=== PATIENT | male | born 1990 | race Caucasian/White ===

== ENCOUNTER 2023-04-24 17:53 | Emergency (ER) | payer OTHER, SELFPAY ==
[2023-04-24 17:58] VITALS: BP 138/97
[2023-04-24 18:23] LABS: % Basophils 0.6 % (0-2); % Eosinophils 0.1 % (0-6); % Immature Granulocytes 0.4 % (0-0.5); % Monocytes 7.1 % (1.7-9.3); % Neutrophils 76.8 % (42.2-75.2); Absolute Basophils 0.1 10^3/uL (0-0.2); Absolute Lymphocytes 1.2 10^3/uL (1.2-3.4); Absolute Monocytes 0.6 10^3/uL (0.1-0.6); Hematocrit 45.2 % (39.0-52.0); Hemoglobin 16.8 g/dL (13.0-18.0); Mean Corp Hgb Conc. 37.2 g/dL (33.0-37.0); Mean Corpuscular Hgb 31.5 pg (27.0-31.0); Mean Corpuscular Volume 84.6 fL (80.0-94.0); Mean Platelet Volume 10.3 fL (7.4-10.4); Nucleated Red Blood Cells % 0 % (-); Platelet Count 263 10^3/uL (130-400); Red Blood Cell Count 5.34 10^6/uL (4.70-6.10); Red Cell Dist. Width 11.6 % (11.5-14.5); White Blood Cell Count 7.8 10^3/uL (4.8-10.8)
[2023-04-24 18:33] LABS: Blood Urea Nitrogen 7 mg/dl (9-20); Calcium 9.9 mg/dl (8.4-10.2); Carbon Dioxide 21 mmol/L (22-30); Chloride 108 mmol/L (98-107); Glucose 130 mg/dl (70-99); Sodium 138 mmol/L (135-145); eGFR > 60.00
--- NOTE | 2023-04-24 21:00 | ED.GENMED ---
History of Present Illness
General
Chief Complaint: Anxiety
Source: patient and significant other
Exam Limitations: none
Time Seen by Provider: 04/24/23 20:41
Nursing documentation reviewed up to this point in time: agreed with
Travel History
Have you had any contact with someone who has COVID-19?: No
Do you have any symptoms of coronavirus? Fever > 100 degrees, chills, cough, shortness of breath, sore throat, loss of taste or smell, muscle aches, or headache?: No
History of Present Illness
History of Present Illness:
33-year-old male presents with a panic attack had what a few days ago for the first time, stopped spontaneously returned today went to an urgent care was tachycardic referred here has had depression and some anxiety previously never seen any
healthcare providers for this, drinks socially not excess uses THC occasionally, no street drugs no amphetamines he has a job, tells me particularly stressful, no suicidal thoughts,
Past History
Past History
ED Past Medical History: None
ED Past Surgical History: Other (Laceration of the right wrist repaired surgically)
Review of Systems
Review of Systems
All Other Systems: Not applicable
Constitutional: Denies fever or fatigue
EENT: Reports no symptoms
Respiratory: Reports no symptoms; Denies cough or trouble breathing
Cardiac: Reports palpitations; Denies chest pain
ABD/GI: Reports no symptoms
: Reports no symptoms
Neurological: Reports numbness (Numbness of his fingers); Denies weakness
Endocrine: Reports no symptoms
Psychiatric: Reports depression and anxiety; Denies suicidal or hallucinations
Phy Exam
Physical Exam
Physical Exam:
Physical Exam
General: no apparent distress, not acutely ill
Neck: No joint
Heart: Tachycardic
Lungs: no acute respiratory distress. clear bilaterally
Abdomen: Nontender
Neuro: alert and oriented. no focal neurological deficits
Skin: no rash
Psychiatric: Tearful cooperative not suicidal
Extremities: no edema.
Course
Orders/Labs/Results
Orders:
Orders
04/24/23 18:00
EKG [Electrocardiogram (*1)] Urgent
Reason for Study: Tachycardia
EKG- Treatment ONCE
04/24/23 18:08
Basic Metabolic Panel Urgent
Complete Blood Count/With Diff Urgent
Magnesium Urgent
Comment: ADD N
TSH Urgent
Comment: ADD ON
04/24/23 20:57
Add On- LAB Urgent
Tests Added?: tsh, magnesium
04/24/23 20:58
Crisis Consult Urgent
Reason for Consult: panic attach
Lorazepam [Ativan] 1 mg PO NOW STA
Abnormal Lab Results
04/24/23
18:08
MCH 31.5 H pg
(27.0-31.0)
MCHC 37.2 H g/dL
(33.0-37.0)
Neutrophils % 76.8 H %
(42.2-75.2)
Lymphocytes % 15.0 L %
(20.5-51.1)
Chloride 108 H mmol/L
(98-107)
Carbon Dioxide 21 L mmol/L
(22-30)
BUN 7 L mg/dl
(9-20)
Glucose 130 H mg/dl
(70-99)
04/24/23 18:08
04/24/23 18:08
Vital Signs
Initial and Last Documented VS:
Initial Vital Signs
Temp Pulse Resp BP Pulse Ox
99.3 F 135 26 138/97 99
04/24/23 17:58 04/24/23 17:58 04/24/23 17:58 04/24/23 17:58 04/24/23 17:58
Last Documented Vital Signs
Temp Pulse Resp BP Pulse Ox
99.3 F 135 26 138/97 99
04/24/23 17:58 04/24/23 17:58 04/24/23 17:58 04/24/23 17:58 04/24/23 17:58
MDM/Problems Addressed
Differential Diagnosis Includes:
Panic attack anxiety hyperthyroid doubt primary arrhythmia or PE
MDM/Problems Addressed:
Panic attack tachycardia
*Pulse Oximetry
Patient hypoxic: no
*EKG
Interpreted by ED Provider?: Yes
Interpretation: abnormal
Comparison EKG: no comparison EKG present
Heart Rate: 118
Rate: tachycardiac
Rhythm: sinus
Ischemia: non-specific ST changes
*Housing Inspectors Interpretation
Rate: Housing Inspectors- N/A
*Critical Care Note
Total Time (30-74mins, 75-104mins- exclusive of procedures): Not Applicable
Update Note
Update Note:
1015, seen by crisis outpatient referrals given, message sent to PCP referral hotline, magnesium noted labs are noted TSH pending
12 midnight patient feeling better
ED Attending Note
-
Portions of this chart may have been created with voice recognition software.� Occasional wrong word or��sound alike� substitutions may have occurred due to the inherent limitations of voice recognition software.
Discharge Plan
Departure
Patient Disposition: Home (Routine Discharge)
Date of Disposition: 04/25/23
Time of Disposition: 00:05
Patient with high blood pressure during this ER visit?: No
Condition: Good
Discharge Problem:
Heart palpitations, Panic attack
Instructions: Anxiety, Adult (DC), Panic Disorder (DC)
Prescriptions:
New
lorazepam [Ativan] 1 mg tablet
1 mg PO BID PRN (Reason: anxiety) Qty: 10 0RF
Referrals:
UNKNOWN - PT DOES,NOT KNOW [Unknown Provider] -
Efrain Franco MD [Active] - Next open appointment
Interventions
Interventions:
*Risk Screen - Suicide Last Done: 04/24/23 17:55
*General Assessment Last Done: 04/24/23 17:55
*Neglect/Abuse Screening Last Done: 04/24/23 17:55
ED- Fall Risk Assessment Last Done: 04/24/23 20:52
*ED COVID-19 Vaccine History Last Done: 04/24/23 20:52
ED-Psychological Assessment Last Done: 04/24/23 20:52
[2023-04-24 21:35] LABS: Magnesium 1.8 mg/dl (1.6-2.3)
[2023-04-24] MEDS: ATIVAN 1 MG PO (22:17)
[2023-04-24 22:19] LABS: TSH 1.68 uIU/ml (0.47-4.68)
[2023-04-25] VITALS: BP 132/82
== END 2023-04-25 00:51 | disposition home or self-care (01) ==
LOC: EMR 17:53
PROVIDERS: Emergency Medicine; EMERGENCY PHYSICIAN Emergency Medicine
DX: R00.2 Palpitations (principal); F41.0 Panic disorder [episodic paroxysmal anxiety]
CPT/HCPCS: 99284; 80048; 83735; 84443; 85025; 93005